=== PATIENT | female | born 1960 | race Caucasian/White ===

== ENCOUNTER 2025-02-23 15:17 | Outpatient (RCR) | payer BC, SELFPAY | END 2025-02-23 16:01 | disposition home or self-care (01) | LOC: HO.PT 15:17 | PROVIDERS: PCP Nurse Practitioner Adult Health; Visit Provider Internal Medicine Gastroenterology | DX: R19.4 Change in bowel habit (principal) | CPT/HCPCS: 97110; 97112; 97140; 97161 ==